=== PATIENT | female | born 1950 ===

== ENCOUNTER 2023-01-23 08:00 | Outpatient (OUT) | payer MEDICARE, SELFPAY ==
[2023-01-23] MEDS: COVID VAC 23-24(12UP)MODERNA/PF 50 MCG/0.5 ML VIAL IM (14:45)
== END 2023-01-23 08:01 | disposition home or self-care (01) ==
LOC: VACCLI 03-14 09:40
DX: Z23 Encounter for immunization (principal)
CPT/HCPCS: 90480; 91322